=== PATIENT | female | born 1980 | race Caucasian/White ===

== ENCOUNTER 2016-04-08 13:41 | Emergency (ER) | payer OTHER ==
[~2016-04-08] VITALS: Ht 162.6 cm; Wt 68.0 kg
[~2016-04-08 13:41] MED LIST: DOXY100T OR; OXYC-360 PO; SULF1TAB47 PO; Z.0.NO CURRENT MEDS
[2016-04-08 13:44] VITALS: BP 195/88; PULSE 112; RESP 20; TEMP 98.5; O2SAT 98
--- NOTE | 2016-04-08 14:23 | PD ---
HPI Chief Complaint: Skin Problem Time Seen by Provider: 14:23 Travel History International Travel<30 days: No Contact w/Intl Traveler<30days: No Traveled to known affect area: No History of Present Illness HPI 35-year-old female with a history of hepatitis C presents to the emergency department for evaluation of left leg swelling and redness. The patient states that about 5 days ago she stubbed her left fifth toe while walking and thought that she broke the toe. States that she was treating it symptomatically but that she noticed a blister arise on the top of her fifth toe 2 days ago. States that the blister burst while inside her sock and then the skin got stuck to her sock peeling the skin off of her left fifth toe. States that the skin has been macerated and painful since this happened. States that last night she began to notice redness to her left lower leg with swelling. States when she woke up this morning she noticed that the redness extends from the bottom of her left lower leg to her left groin and the swelling is worse. She also complains of some pruritic crusting lesions to the right anterior lower leg for 1 month, there is also one on the right hand second finger and left lateral leg. Denies fever, chills, nausea, vomiting, numbness or tingling, weakness, chest pain, shortness of breath. Denies . Patient admits to a history of IV drug use in the past, last used 2 years ago, states that she currently takes a large dose of methadone. No other complaints. PFSH Past Medical History Blood Disorders: No Anxiety: Yes Cancer: Yes (CERVICAL CANCER) Cardiovascular Problems: No Chemotherapy: No Diminished Hearing: No Endocrine: No Gastrointestinal Disorders: No Genitourinary: Yes (KIDNEY INFECTIONS REQUIRING HOSPITALIZATION) Headaches: Yes Hepatitis: Yes (C) Immune Disorder: No Musculoskeletal: No Neurologic: Yes Psychiatric: Yes Reproductive: No Respiratory: Yes Migraines: Yes Radiation Therapy: No Ulcer: Yes ?: Not LMP: 03/18/16 : 5 Para: 4 Miscarriage: 1 Tubal Ligation: Yes Past Surgical History AICD: No Arteriovenous Shunt: No Gynecologic Surgery: Yes (LEEP, CYST REMOVED FROM RIGHT BREAST) Joint Replacement: No Pacemaker: No Tonsillectomy: Yes (age 15) Other Surgery: Yes (cyst removed from left breast age 15) Social History Alcohol Use: No Tobacco Use: Yes (10 CIGARETTES DAILY) Substance Use: Yes (THC) Allergies-Medications (Allergen,Severity, Reaction): Coded Allergies: No Known Allergies (Verified , 04/08/16) Reported Meds & Prescriptions Reported Meds & Active Scripts Active Bactrim DS (Sulfamethoxazole-Trimethoprim) 800-160 Mg Tab 1 Tab PO BID Clindamycin (Clindamycin HCl) 150 Mg Cap 300 Mg PO Q6H 10 Days Percocet (Oxycodone/Acetaminophen) 5 Mg/325 Mg Tab 1-2 Tab PO Q4-6HPRN FOR PAIN Bactrim Ds (Trimethoprim/Sulfamethoxazole) Tab 1 Tab PO BID Doxycycline Hy100 M4 100 Mg Tab 100 Mg OR BID Reported No Current Meds (Miscellaneous Medication) Misc Review of Systems Except as stated in HPI: all other systems reviewed are Neg Physical Exam Narrative GENERAL: Well-nourished and well-developed pleasant female patient in no acute distress. SKIN: Warm and dry. Crusting irregular raised lesions to anterior right lower leg approximately 2 cm in diameter each. 1 cm crusting lesion to right hand second finger. 1 cm crusting lesion to left lateral lower leg. The left fifth toe skin is macerated and falling off, the nail is gone. There is erythema and warmth to the left medial lower leg that extends in a line up the leg to the left groin. There is also swelling noted to the left lower leg with tenderness to palpation. HEAD: Normocephalic and atraumatic. EYES: No injection, drainage, or hyphema noted. PERRLA. EOMI. ENT: No nasal drainage noted. Oropharynx is clear. NECK: Supple and the trachea is midline. CARDIOVASCULAR: Regular rate and rhythm. RESPIRATORY: Breath sounds are equal bilaterally with no accessory muscle use, wheezing, rhonchi, or crackles. GASTROINTESTINAL: Abdomen is soft, non-tender, and nondistended. MUSCULOSKELETAL: No obvious deformities, cyanosis, or ecchymosis is present throughout the upper and lower extremities. Patient has full range of motion without any signs of neurovascular compromise. NEUROLOGICAL: Awake, alert, and oriented. Normal speech and gait. Cranial nerves are grossly intact. Data Data Last Documented VS Vital Signs Date Time Temp Pulse Resp B/P Pulse Ox O2 Delivery O2 Flow Rate FiO2 04/08/16 14:30 98 Room Air 04/08/16 14:06 100 18 04/08/16 13:44 98.5 195/88 Orders Basic Metabolic Panel (Bmp) (04/08/16 14:21) Complete Blood Count With Diff (04/08/16 14:21) Iv Access Insert/Monitor (04/08/16 14:21) Ecg Monitoring (04/08/16 14:21) Oximetry (04/08/16 14:21) Sodium Chloride 0.9% Flush (Ns Flush) (04/08/16 14:30) Ed Urine Pregnancytest Poc (04/08/16 14:21) Clindamycin Inj (Cleocin Inj) (04/08/16 14:30) Us Leg Venous Doppler (04/08/16 ) Foot, Complete ([id number]) (04/08/16 14:21) Ketorolac Inj (Toradol Inj) (04/08/16 14:30) Westergren Sedimentation Rate (04/08/16 14:27) C-Reactive Protein (Crp) (04/08/16 14:29) Labs Laboratory Tests Test 04/08/16 04/08/16 14:29 15:11 White Blood Count 13.5 TH/MM3 Red Blood Count 3.77 MIL/MM3 Hemoglobin 10.6 GM/DL Hematocrit 30.6 % Mean Corpuscular Volume 81.0 FL Mean Corpuscular Hemoglobin 28.0 PG Mean Corpuscular Hemoglobin 34.6 % Concent Red Cell Distribution Width 13.5 % Platelet Count 250 TH/MM3 Mean Platelet Volume 9.2 FL Neutrophils (%) (Auto) 81.2 % Lymphocytes (%) (Auto) 12.6 % Monocytes (%) (Auto) 5.6 % Eosinophils (%) (Auto) 0.1 % Basophils (%) (Auto) 0.5 % Neutrophils # (Auto) 11.0 TH/MM3 Lymphocytes # (Auto) 1.7 TH/MM3 Monocytes # (Auto) 0.8 TH/MM3 Eosinophils # (Auto) 0.0 TH/MM3 Basophils # (Auto) 0.1 TH/MM3 CBC Comment DIFF FINAL Differential Comment Sodium Level 139 MEQ/L Potassium Level 3.3 MEQ/L Chloride Level 107 MEQ/L Carbon Dioxide Level 23.8 MEQ/L Anion Gap 8 MEQ/L Blood Urea Nitrogen 10 MG/DL Creatinine 0.78 MG/DL Estimat Glomerular Filtration 84 ML/MIN Rate Random Glucose 111 MG/DL Calcium Level 8.7 MG/DL C-Reactive Protein 19.50 MG/DL Erythrocyte Sedimentation Rate 73 mm/hr MDM Medical Decision Making Medical Screen Exam Complete: Yes Emergency Medical Condition: Yes Differential Diagnosis Cellulitis versus lymphangitis versus sepsis versus DVT versus fracture versus osteomyelitis Narrative Course 35-year-old female presents to the emergency department for evaluation of left leg redness and swelling. Patient is afebrile. She is initially tachycardic with a heart rate of 112 bpm, now 100 bpm. Otherwise vital signs are stable. She does have what appears to be cellulitis with lymphangitis of the left leg. The leg is swollen and therefore we'll do an ultrasound to rule out DVT. X-ray of the left foot has been ordered and is pending. CBC shows elevated white blood cell count of 13.5, mild anemia with hemoglobin 10.6 hematocrit 30.6. ESR is elevated at 73. BMP shows mild hypokalemia with a potassium of 3.3. CRP is elevated at 19.5 X-ray of the left foot shows soft tissue thickening of the fifth digit but is otherwise unremarkable. Ultrasound of the left leg is negative for DVT. Patient has remained stable and without complaint while here in the emergency department. She does have some elevated inflammatory markers and a slightly elevated white blood cell count. She has been given clindamycin 600 mg IV here in the ED. She does not appear septic. She appears quite well overall. Discussed with my attending physician Dr. Gonzalez who also evaluated the patient and is in agreement that it is appropriate to treat the patient as an outpatient with oral antibiotics. She is given strict return precautions for worsening of symptoms. The patient verbalizes understanding and agreement with treatment plan. I discussed the case with my attending physician Dr. Gonzalez who is aware of the patients history, physical examination findings, and treatment plan. Diagnosis Primary Impression: Cellulitis of skin with lymphangitis Additional Impression: Dermatitis Referrals: Primary Care Physician Patient Instructions: Cellulitis (ED), General Instructions, Lymphangitis (ED) Additional Instructions: Apply cream to skin lesions as instructed. Take medications as prescribed with food and a full glass of water. Follow-up with your Primary Care Physician. Return to the ED for any acute worsening of symptoms such as fever, worsening redness, pain or swelling. Med/Other Pt SpecificInfo: Prescription(s) given Scripts Triamcinolone Topical 0.1% Cream1 Applic TOPICAL BID 7 Days Ref 0 Prov:Harsha Gonzalez MD 04/08/16 Naproxen 500 Mg [id number] Mg PO BID 7 Days Ref 0 Prov:Harsha Gonzalez MD 04/08/16 Sulfamethoxazole-Trimethoprim (Bactrim DS)800-160 Mg Tab1 Tab PO BID #20 TAB Ref 0 Prov:Harsha Gonzalez MD 04/08/16 Clindamycin 150 Mg [id number] Mg PO Q6H 10 Days Ref 0 Prov:Harsha Gonzalez MD 04/08/16 Disposition: 01 DISCHARGE HOME Condition: Stable Sophia Bhatti Apr 08, 2016 14:23
[2016-04-08 14:30] VITALS: O2SAT 98
[2016-04-08] MEDS ORDERED: SODIUM CHLORIDE 0.9% FLUSH 5 ML FLUSH IVF PRN (14:30)
[2016-04-08] MEDS ORDERED: CLINDAMYCIN INJ 600 MG in SODIUM CHLORIDE 0.9% INJ 100 ML IV ONE (14:30)
[2016-04-08] MEDS ORDERED: KETOROLAC TROMETHAMINE 30 MG/ML (IVP) VIAL IV PUSH ONE (14:30)
[2016-04-08 15:12] LABS: BASOPHIL # 0.1 TH/MM3 (0-0.2); BASOPHIL % 0.5 % (0.0-2.0); EOSINOPHIL % 0.1 % (0.0-4.0); HEMATOCRIT 30.6 % (35.0-46.0); HEMO FLAGS DIFF FINAL; LYMPH % 12.6 % (9.0-44.0); LYMPHOCYTE # 1.7 TH/MM3 (1.0-4.8); MEAN CORPUSCULAR HGB CONC 34.6 % (32.0-36.0); MONO % 5.6 % (0.0-8.0); NEUT % 81.2 % (16.0-70.0); PLATELET COUNT 250 TH/MM3 (150-450); RED BLOOD COUNT 3.77 MIL/MM3 (4.00-5.30); RED CELL DISTRIBUTION WIDTH 13.5 % (11.6-17.2); WHITE BLOOD COUNT 13.5 TH/MM3 (4.0-11.0)
--- NOTE | 2016-04-08 15:27 | RADRPT ---
EXAM DATE/TIME: 04/08/2016 14:43 [facility] COMPARISON: No previous studies available for comparison. INDICATIONS : Left foot pain. Patient states she injured her left foot fifth digit a week ago and a pus blister winifred eared three days ago. MEDICAL HISTORY : None. SURGICAL HISTORY : None. ENCOUNTER: Initial ACUITY: 3 days PAIN SCORE: 7/10 LOCATION: Left foot. FINDINGS: 2 view examination of the left foot was performed. There is soft tissue thickening about the 5th dig it. No radiopaque foreign body seen. The osseous structures are intact without evidence of perioste al reaction, destruction, dislocation, or fracture. CONCLUSION: The osseous structures of the foot are intact. Anil Hathaway MD on April 08, 2016 at 15:24 Board Certified Radiologist. This report was verified electronically.
[2016-04-08 15:34] LABS: BICARBONATE 23.8 MEQ/L (21.0-32.0); POTASSIUM 3.3 MEQ/L (3.5-5.1)
--- NOTE | 2016-04-08 15:42 | RADRPT ---
EXAM DATE/TIME: 04/08/2016 14:48 [facility] COMPARISON: No previous studies available for comparison. INDICATIONS : Swelling. MEDICAL HISTORY : Cervical cancer. Hep C. UTI. Elevated liver enzymes. SURGICAL HISTORY : Tonsillectomy. Tubal ligation. ENCOUNTER: Initial ACUITY: 1 day PAIN SCORE: 8/10 LOCATION: Left leg. TECHNIQUE: Venous ultrasound of the leg was performed from the inguinal ligament to the proximal calf. Real-kade e, color Doppler and spectral tracing, compression and augmentation techniques were used. FINDINGS: There is normal compressibility of the deep venous system from the inguinal region to the proximal ca lf. No echogenic clot is seen in the lumen of the common femoral, femoral, popliteal, and posterior tibial veins. There is a normal response of the venous system to proximal and distal augmentation an d respiration. Incidental note of several oval hypoechoic lymph nodes in the left groin region, the largest of which measure up to 2.3 cm in dimension. CONCLUSION: The study is negative for deep venous thrombosis left lower extremity. Anil Hathaway MD on April 08, 2016 at 15:39 Board Certified Radiologist. This report was verified electronically.
[2016-04-08] MEDS ORDERED: CLIN1CAP5 PO (15:59)
[2016-04-08] MEDS ORDERED: BACT800T5 PO (15:59)
[2016-04-08] MEDS ORDERED: NAPR500T PO (16:02)
[2016-04-08] MEDS ORDERED: TRIA.1%T TOPICAL (16:02)
[2016-04-08 16:29] VITALS: BP 126/68
== END 2016-04-08 16:34 | disposition home or self-care (01) ==
LOC: NEPE 13:41
DX: L03.032 Cellulitis of left toe (principal); I89.1 Lymphangitis; L30.9 Dermatitis, unspecified; D72.829 Elevated white blood cell count, unspecified; K75.9 Inflammatory liver disease, unspecified; F17.210 Nicotine dependence, cigarettes, uncomplicated
CPT/HCPCS: 73630; 80048; 84703; 85025; 85652; 86140; 93971; 96374; 96375; 99284; J1885